=== PATIENT | female | born 1975 | race Two or more races ===

== ENCOUNTER 2016-09-12 20:58 | Emergency (ER) | payer SELFPAY ==
[~2016-09-12] VITALS: Ht 162.6 cm; Wt 70.3 kg
[2016-09-12] MEDS ORDERED: DIPHENHYDRAMINE 50 MG/ML VIAL IVP ONE (21:30)
[2016-09-12] MEDS ORDERED: IV NORMAL SALINE 1000ML BAG 1,000 ML IV ONE (21:30)
--- NOTE | 2016-09-12 21:33 | PHYS DOC ---
Past Medical History Past Medical History: Fibromyalgia, Hypothyroid, Migraines, Other Additional Past Medical Histor: LUPAS Past Surgical History: Hysterectomy Additional Past Surgical Histo: DNC Alcohol Use: Occasionally Drug Use: Marijuana Adult General Chief Complaint Chief Complaint: HEADACHE HPI HPI 41-year-old female who has significant right-sided headache for the last week that has worsened. She was seen by her primary care doctor today and given a shot of Toradol with only mild relief. She states she continues to vomit and has significant headache symptoms. Return headache an 8 out of 10 on the pain scale right now. She localizes it primarily to her right occipital area with radiation only to her right frontal area. She states her migraines do not have a typical pattern. She has her usual photophobia. She denies any fever or chills. She denies any neck stiffness. She is fully alert and oriented at this time and in no acute distress. Has tried multiple medications including Fioricet , Motrin, Tylenol, and Topamax. She states these medications usually work that had failed this time. Review of Systems Review of Systems Constitutional: Denies fever or chills [] Eyes: Denies change in visual acuity, redness, or eye pain [] HENT: Denies nasal congestion or sore throat [] Respiratory: Denies cough or shortness of breath [] Cardiovascular: No additional information not addressed in HPI [] GI: Denies abdominal pain, has nausea, has vomiting, denies bloody stools or diarrhea [] : Denies dysuria or hematuria [] Musculoskeletal: Denies back pain or joint pain [] Integument: Denies rash or skin lesions [] Neurologic: Has headache, denies focal weakness or sensory changes [] Endocrine: Denies polyuria or polydipsia [] Current Medications Current Medications Current Medications Medications (Trade) Dose Ordered Sig/Usama Start Time Stop Time Status Last Admin Dose Admin Dexamethasone Sodium Phosphate 10 mg 10 mg 1X ONCE 09/12/16 21:45 09/12/16 21:46 DC 09/12/16 21:45 10 MG Diphenhydramine HCl (Benadryl) 25 mg 1X ONCE 09/12/16 21:30 09/12/16 21:31 DC 09/12/16 21:45 25 MG Ketorolac Tromethamine (Toradol) 30 mg 1X ONCE 09/12/16 21:45 09/12/16 21:46 DC 09/12/16 21:44 30 MG Metoclopramide HCl (Reglan) 10 mg 1X ONCE 09/12/16 21:45 09/12/16 21:46 DC 09/12/16 21:45 10 MG Sodium Chloride (Iv Sodium Chloride 0.9% 1000ml Bag) 1,000 ml @ 1,000 mls/hr 1X ONCE 09/12/16 21:30 09/12/16 22:29 DC 09/12/16 21:30 1,000 MLS/HR Allergies Allergies Allergies Coded Allergies Type Severity Reaction Last Updated Verified codeine Allergy Unknown Swelling 09/12/16 Yes Physical Exam Physical Exam Constitutional: Well developed, well nourished, no acute distress, non-toxic appearance. [] HENT: Normocephalic, atraumatic, bilateral external ears normal, oropharynx moist, no oral exudates, nose normal. [] Eyes: PERRLA, EOMI, conjunctiva normal, no discharge. [] Neck: Normal range of motion, no tenderness, supple, no stridor. [] Cardiovascular:Heart rate regular rhythm, no murmur [] Lungs & Thorax: Bilateral breath sounds clear to auscultation [] Abdomen: Bowel sounds normal, soft, no tenderness, no masses, no pulsatile masses. [] Skin: Warm, dry, no erythema, no rash. [] Back: No tenderness, no CVA tenderness. [] Extremities: No tenderness, no cyanosis, no clubbing, ROM intact, no edema. [] Neurologic: Alert and oriented X 3, normal motor function, normal sensory function, no focal deficits noted. [] Psychologic: Affect normal, judgement normal, mood normal. [] Current Patient Data Vital Signs Vital Signs Date Time Temp Pulse Resp B/P Pulse Ox O2 Delivery O2 Flow Rate FiO2 09/12/16 21:08 98.0 85 16 120/58 100 Room Air 98.0 EKG EKG [] Radiology/Procedures Radiology/Procedures Head CT without contrast demonstrates the following: The ventricles and sulci are within normal limits in size and configuration. No area of abnormal attenuation is seen involving the brain parenchyma. No extra-axial fluid collection is seen. No skull fracture is noted. Course & Med Decision Making Course & Med Decision Making Pertinent Labs and Imaging studies reviewed. (See chart for details) This 41-year-old female who has history of fibromyalgia and migraine headaches will be given a IV migraine cocktail consisting of an IV fluid bolus, IV Decadron, IV Toradol, IV Reglan, IV Benadryl. Because this is a worse headache than she typically has, I will also be obtaining a CT of her head to rule out any other acute cause of her headache as she states she has not had head imaging for over a decade. CT of her head was negative for any acute abnormality. Upon my reassessment, the patient feels improved after IV cocktail. She successfully oral fluid challenged will be discharged with a course of Zofran with instructions remain in a quiet dark room for the next 24 hours and to continue to take her usual migraine medications. Dragon Disclaimer Dragon Disclaimer This electronic medical record was generated, in whole or in part, using a voice recognition dictation system. Departure Departure Impression: Primary Impression: Migraine Disposition: 01 HOME, SELF-CARE Admitting Physician: Other Condition: STABLE Patient Instructions: Migraine Headache, [id number] Additional Instructions: Please take your medication as prescribed for your usual migraine headaches. Remain in a quiet, dark room for the next 24 hours. Take zofran as needed for any nausea and continue to remain well hydrated. Return to the ER if you develop any worsening of your symptoms. Follow closely with your primary doctor for your headache. Scripts Ondansetron Hcl (Zofran)4 Mg Tablet4 Mg PO BID PRN NAUSEA/VOMITING #10 TAB Prov:DAVON GARCIA DO 09/12/16 DAVON GARCIA DO Sep 12, 2016 21:33
[2016-09-12] MEDS ORDERED: KETOROLAC TROMETHAMINE 30 MG/ML SYRINGE. IV ONE (21:45)
[2016-09-12] MEDS ORDERED: METOCLOPRAMIDE HCL 10 MG/2 ML VIAL. IV ONE (21:45)
[2016-09-12] MEDS ORDERED: DEXAMETHASONE SOD PHOS 20 MG/5 ML VIAL. IV ONE (21:45)
--- NOTE | 2016-09-12 22:00 | RAD ---
PROCEDURE CT scan of the head without contrast 09/12/2016 HISTORY Severe headaches for the last 5 days. TECHNIQUE Unenhanced contiguous, 5 millimeter axial sections were obtained through the head. One or more of the following individualized dose reduction techniques were utilized for this study: 1. Automated exposure control. 2. Adjustment of the mA and/or kV according to patient size. 3. Use of iterative reconstruction technique. FINDINGS The ventricles and sulci are within normal limits in size and configuration. No area of abnormal attenuation is seen involving the brain parenchyma. No extra-axial fluid collection is seen. No skull fracture is noted. IMPRESSION Negative study. Electronically signed by: Niko Womack MD (Sep 12, 2016 21:59:41)
[2016-09-12 22:30] VITALS: BP 110/67
[2016-09-12] MEDS ORDERED: ONDA4TAB7 PO (22:36)
== END 2016-09-12 22:50 | disposition home or self-care (01) ==
LOC: ER 20:58
DX: G43.909 Migraine, unspecified, not intractable, without status migrainosus (principal); M79.7 Fibromyalgia; E03.9 Hypothyroidism, unspecified; L93.0 Discoid lupus erythematosus; F12.10 Cannabis abuse, uncomplicated; Z88.5 Allergy status to narcotic agent
CPT/HCPCS: 70450; 96361; 96374; 96375; 99284; J1100; J1200; J1885; J2765; J7030